=== PATIENT | male | born 1965 | race Caucasian/White ===

== ENCOUNTER → 2016-10-01 | Outpatient (CLI) | payer OTHER | LOC: LAB 09:45 | PROVIDERS: ATTEND Family Medicine | DX: I10 Essential (primary) hypertension (principal); E11.59 Type 2 diabetes mellitus with other circulatory complications ==

== ENCOUNTER 2016-11-02 05:59 | Day surgery (SDC) | payer OTHER ==
[2016-11-02] MEDS ORDERED: LACTATED RINGERS 1,000 ML IVS ONE (07:00)
--- NOTE | 2016-11-02 09:25 | OP ---
DATE OF PROCEDURE: 11/02/16 PREOPERATIVE DIAGNOSIS: 1. Iron deficiency anemia. POSTOPERATIVE DIAGNOSIS: 1. Multiple polypectomies. 2. Internal hemorrhoids. PROCEDURE: 1. Colonoscopy. SURGEON: Abner Le MD. ANESTHESIA: MAC. PROCEDURE: Informed consent was obtained prior to sedation. The preprocedure cardiopulmonary assessment was satisfactory. The patient was placed in the left lateral decubitus position and was sedated. The tip of the Olympus colonoscope was inserted in the rectum and guided through the entire colon under direct visualization. The ileocecal valve and appendiceal orifice appeared normal. The colonoscopy prep was good. There was some tortuosity through the entire colon. Slow withdrawal and careful examination of the colon was started at this time. There was a 3 mm ascending polyp that was resected and retrieved using a hot snare. Continuation of withdrawal showed evidence of two polyps measuring 4 and 3 mm in the sigmoid and rectosigmoid areas. These both were resected and retrieved using a hot snare. Continuation of withdrawal showed evidence of internal hemorrhoids on retroflexion view of the anorectal area. No further abnormalities were identified during this colonoscopy. The scope was then slowly withdrawn from the patient and the procedure was terminated. RECOMMENDATION: 1. Repeat colonoscopy in three to five years. 2. Cologuard stool sample in three years and every three years until next recommended colonoscopy after pathology reviewed. 3. Watch for complications like abdominal pain, bleeding, or other. 4. Regular diet, regular activity. 5. Avoid all nonsteroidal anti-inflammatories drugs or blood thinners for a week. 6. Followup in my office in four weeks. #[id number] MTDD
[2016-11-02 09:52] VITALS: BP 142/98; TEMP 98.1; O2SAT 99
[2016-11-02] MEDS ORDERED: LIDOCAINE 1% 10 ML VIAL INJ ONE (12:00)
[2016-11-02] MEDS ORDERED: PROPOFOL 200 MG/20 ML VIAL IV ONE (12:00)
== END 2016-11-02 09:45 | disposition home or self-care (01) ==
LOC: AMB 05:59 → EDSTATUS 08:00 → AMB 09:45
DX: Z12.11 Encounter for screening for malignant neoplasm of colon (principal); D50.9 Iron deficiency anemia, unspecified; D12.2 Benign neoplasm of ascending colon; D12.7 Benign neoplasm of rectosigmoid junction; K64.8 Other hemorrhoids; Z79.82 Long term (current) use of aspirin; Z79.4 Long term (current) use of insulin; Z79.899 Other long term (current) drug therapy
CPT/HCPCS: 00810; 36416; 45385; 82948; J3490; J7120

== ENCOUNTER 2016-12-21 07:45 | Day surgery (SDC) | payer OTHER ==
[~2016-12-21 07:45] MED LIST: LACTATED RINGERS 1,000 ML ONE
--- NOTE | 2016-12-21 09:15 | OP ---
DATE OF PROCEDURE: 12/21/16 PREOPERATIVE DIAGNOSIS: 1. Iron deficiency anemia. POSTOPERATIVE DIAGNOSIS: 1. Gastritis, status post biopsy. 2. Two salmon colored tongues measuring 2 cm from the gastroesophageal junction , status post biopsy, suspicious for Dunne's esophagitis PROCEDURE: 1. Esophagogastroduodenoscopy. SURGEON: Abner Le MD. ANESTHESIA: MAC. ESTIMATED BLOOD LOSS: Less than 5 mL. PROCEDURE: Informed consent was obtained prior to sedation. The preprocedure cardiopulmonary assessment was satisfactory. The patient was placed in the left lateral decubitus and was sedated. The tip of the Olympus gastroendoscope was inserted in the oropharynx and guided through the cricopharyngeus under direct visualization. The scope was advanced into the duodenum which appeared unremarkable. Slow withdrawal started at this time. The bulb appeared normal. In the stomach, there was evidence of atrophic gastritis. This was biopsied with cold forceps for histology. It was diffuse and extended in the body and antrum. Retroflexion view of the cardia showed no abnormality. In the distal esophagus, there was evidence of two tongues of salmon colored mucosa that were biopsied with cold forceps for histology. This was suspicious for Dunne's esophagus. The scope was then withdrawn from the patient and the procedure was terminated. RECOMMENDATION: 1. Proton pump inhibitor p.o. once a day. 2. Avoid all NSAIDs. 3. Followup pathology. 4. Followup in GI clinic in four weeks. 5. Resume diet. 6. Resume regular activity tomorrow. #[id number] [facility]
[2016-12-21 10:42] VITALS: BP 141/92; TEMP 98.2; O2SAT 95
[2016-12-21] MEDS ORDERED: PROPOFOL 200 MG/20 ML VIAL IV ONE (12:00)
== END 2016-12-21 09:30 | disposition home or self-care (01) ==
LOC: AMB 07:45
DX: D50.9 Iron deficiency anemia, unspecified (principal); K29.00 Acute gastritis without bleeding; K29.50 Unspecified chronic gastritis without bleeding; B96.81 Helicobacter pylori [H. pylori] as the cause of diseases classified elsewhere; K20.9 Esophagitis, unspecified; E66.9 Obesity, unspecified; Z68.33 Body mass index [BMI] 33.0-33.9, adult; Z79.82 Long term (current) use of aspirin; Z79.4 Long term (current) use of insulin; Z79.899 Other long term (current) drug therapy

== ENCOUNTER → 2017-03-05 | Outpatient (CLI) | payer OTHER | END | disposition home or self-care (01) | LOC: LAB 10:10 | PROVIDERS: ATTEND Family Medicine | DX: I10 Essential (primary) hypertension (principal); E11.59 Type 2 diabetes mellitus with other circulatory complications ==

== ENCOUNTER → 2017-07-25 | Outpatient (CLI) | payer OTHER | LOC: LAB.O 07:30 | PROVIDERS: ATTEND Family Medicine | DX: I10 Essential (primary) hypertension (principal); E11.59 Type 2 diabetes mellitus with other circulatory complications; E29.1 Testicular hypofunction; Z12.5 Encounter for screening for malignant neoplasm of prostate ==

== ENCOUNTER → 2018-02-20 | Outpatient (CLI) | payer OTHER | LOC: LAB.O 07:38 | PROVIDERS: ATTEND Family Medicine | DX: I10 Essential (primary) hypertension (principal); E11.59 Type 2 diabetes mellitus with other circulatory complications ==

== ENCOUNTER → 2018-06-02 | Outpatient (CLI) | payer OTHER | LOC: LAB.O 08:00 | PROVIDERS: ATTEND Family Medicine | DX: E11.59 Type 2 diabetes mellitus with other circulatory complications (principal); I10 Essential (primary) hypertension ==

== ENCOUNTER → 2018-10-23 | Outpatient (CLI) | payer OTHER | LOC: LAB.O 07:39 | PROVIDERS: ATTEND Family Medicine | DX: I10 Essential (primary) hypertension (principal); E11.59 Type 2 diabetes mellitus with other circulatory complications ==

== ENCOUNTER → 2018-10-31 | Outpatient (CLI) | payer OTHER | LOC: GMAM 16:37 | PROVIDERS: ATTEND Family Medicine | DX: M79.674 Pain in right toe(s) (principal) ==

== ENCOUNTER → 2019-03-30 | Outpatient (CLI) | payer OTHER | LOC: LAB.O 08:36 | PROVIDERS: ATTEND Family Medicine | DX: I10 Essential (primary) hypertension (principal); E11.59 Type 2 diabetes mellitus with other circulatory complications; Z12.5 Encounter for screening for malignant neoplasm of prostate ==

== ENCOUNTER → 2019-09-20 | Outpatient (CLI) | payer BC | LOC: LAB.O 07:38 | PROVIDERS: ATTEND Family Medicine | DX: E11.59 Type 2 diabetes mellitus with other circulatory complications (principal) ==

== ENCOUNTER → 2020-04-21 | Outpatient (CLI) | payer BC ==
--- NOTE | 2020-04-21 19:48 | US ---
EXAM DESCRIPTION: Liver: ULTRASOUND. CLINICAL HISTORY: FATTY CHANGE OF LIVER COMPARISON: None. TECHNIQUE: Transabdominal scannin-dimensional and Doppler modes. FINDINGS: Gallbladder: normal size, shape, echogenicity; no intraluminal stones or sludge. No fluid around the gallbladder. No wall thickening. 2.2 mm. Non-tender with transducer pressure. Common bile duct: caliber 4.2 mm within normal limits. Liver: Echogenic echogenicity; contour liver capsule smooth where seen. No fluid around the liver. Intrahepatic biliary ducts normal caliber. Doppler hepatopedal flow portal vein. 11 mm normal caliber. Long axis right lobe 16.0 Pancreas: normal size and echogenicity. Duct not seen. Right kidney: long axis measures 10.10 cm.; Volume normal cortical Echogenicity. Normal cortical thickness. 4.8 mm calcification with shadowing could represent calcification in the wall of the cyst or a echogenic stone. No hydronephrosis. Aorta proximal: 2.0 cm normal caliber. IMPRESSION: 1. Steatosis of the liver with size upper normal limits. Normal caliber of the ducts and vascularity. Smooth capsule with no ascites. Pancreas is unremarkable. 2. Right kidney with 4.8 mm calcification in the cyst versus echogenic stone. No hydronephrosis. Consider follow-up CT scan if patient symptomatic for urinary tract disease normal caliber of the proximal abdominal aorta. 3. Gallbladder and common bile duct are unremarkable. Electronically signed by: Guero Rogers MD 04/21/2020 7:46 PM CDT
== END ==
LOC: US 08:37
PROVIDERS: ATTEND Family Medicine
DX: K76.0 Fatty (change of) liver, not elsewhere classified (principal); N28.1 Cyst of kidney, acquired

== ENCOUNTER → 2020-08-12 | Outpatient (CLI) | payer BC | LOC: YCFC.O 16:35 | PROVIDERS: ATTEND Nurse Practitioner Family | DX: Z20.828 Contact with and (suspected) exposure to other viral communicable diseases (principal) ==

== ENCOUNTER → 2020-10-31 | Outpatient (CLI) | payer BC | LOC: LAB.O 07:37 | PROVIDERS: ATTEND Family Medicine | DX: I10 Essential (primary) hypertension (principal); E11.59 Type 2 diabetes mellitus with other circulatory complications; E78.2 Mixed hyperlipidemia; Z12.5 Encounter for screening for malignant neoplasm of prostate ==